=== PATIENT | male | born 1950 | race Caucasian/White ===

== ENCOUNTER 2018-08-13 07:22 | Day surgery (SDC) | payer MEDICARE, OTHER ==
[~2018-08-13 07:22] MED LIST: LIDOCAINE 2% (SDV) 5 ML INJ
[2018-08-13] MEDS ORDERED: PROPOFOL 20 ML (08:20)
== END 2018-08-13 11:58 | disposition home or self-care (01) ==
LOC: GIL 07:22
DX: Z12.11 Encounter for screening for malignant neoplasm of colon (principal); K64.8 Other hemorrhoids; D12.6 Benign neoplasm of colon, unspecified
CPT/HCPCS: 45380; 88305